=== PATIENT | female | born 1940 ===

== ENCOUNTER → 2024-01-27 | Outpatient (CLI) | payer OTHER ==
[2024-01-27 12:28] LABS: Basophils # (auto) 0 10 ^3/uL (0-0.2); Basophils % (auto) 0.8 % (0.0-2.0); Eosinophils # (auto) 0.1 10 ^3/uL (0-0.8); Eosinophils % (auto) 2.3 % (0.0-7.0); Hematocrit 41.4 % (36.0-46.0); Hemoglobin 13.5 g/dL (12.2-16.2); Lymphocytes # (auto) 1.5 10 ^3/uL (0.4-5.4); Lymphocytes % (auto) 29.3 % (10.0-50.0); Mean Corpuscular Hemoglobin 31.5 pg (28.0-32.0); Mean Corpuscular Hgb Conc. 32.7 g/dL (32.0-36.0); Mean Corpuscular Volume 96.3 fL (80.0-100.0); Monocytes # (auto) 0.4 10 ^3/uL (0-1.3); Monocytes % (auto) 8.6 % (0.0-12.0); Neutrophils # (auto) 3.1 10 ^3/uL (1.6-8.6); Red Cell Distribution Width 13.1 % (11.8-14.3); White Blood Cell 5.2 10^3/uL (4.4-10.8)
[2024-01-27 12:38] LABS: Alanine Aminotransferase 11 U/L (7-40); Alkaline Phosphatase 74 U/L (46-116); Anion Gap 7 (5-15); Carbon Dioxide 27 mmol/L (20-30); Chloride 104 mmol/L (98-107); Glucose 101 mg/dL (74-106); Sodium 138 mmol/L (136-145)
[2024-01-27 12:39] LABS: Albumin 4.8 g/dL (3.2-4.8); Aspartate Aminotransferase 20 U/L (13-40); BUN/Creatinine Ratio 17.5 (10.0-20.0); Bilirubin, Total 0.6 mg/dL (0.2-1.0); Blood Urea Nitrogen 11 mg/dL (9-23)
[2024-01-27 12:46] LABS: Urine Bacteria FEW /hpf (None Seen); Urine Blood Negative /uL (Negative); Urine Clarity Clear (Clear); Urine Color Colorless (Yellow); Urine Protein, UAD Negative (Negative); Urine Specific Gravity 1.011 (1.001-1.035); Urine Urobilinogen Normal (Negative); Urine WBC <1 /hpf (0 - 5)
[2024-01-27 13:00] LABS: Triglycerides 110 mg/dL (< 150)
[2024-01-27 13:01] LABS: CRP High Sensitivity 0.03 mg/dL (<1.0); LDL Cholesterol 125 mg/dL (< 100)
[2024-01-27 13:02] LABS: Cholesterol 183 mg/dL (< 200); HDL Cholesterol 58 mg/dL (40-59)
== END | disposition home or self-care (01) ==
LOC: LAB 12:08
PROVIDERS: ATTEND Internal Medicine
DX: Z00.01 Encounter for general adult medical examination with abnormal findings (principal); I10 Essential (primary) hypertension; E11.69 Type 2 diabetes mellitus with other specified complication
CPT/HCPCS: 36415; 80053; 80061; 81001; 83036; 84439; 84443; 85025; 86038; 86141

== ENCOUNTER → 2024-04-12 | Outpatient (CLI) | payer OTHER ==
[2024-04-12 15:56] LABS: Albumin 4.4 g/dL (3.2-4.8); Alkaline Phosphatase 70 U/L (46-116); Anion Gap 4 (5-15); Aspartate Aminotransferase 18 U/L (13-40); Bilirubin, Total 0.5 mg/dL (0.2-1.0); Blood Urea Nitrogen 21 mg/dL (9-23); Calcium 9.6 mg/dL (8.5-10.1); Carbon Dioxide 29 mmol/L (20-30); Chloride 101 mmol/L (98-107); Creatine Kinase IFCC 164 U/L (34-145); Glucose 88 mg/dL (74-106); Potassium 4.3 mmol/L (3.5-5.1); Sodium 134 mmol/L (136-145); Total Protein 7.1 g/dL (5.7-8.2)
[2024-04-12 15:57] LABS: Alanine Aminotransferase < 9 U/L (7-40)
== END | disposition home or self-care (01) ==
LOC: LAB 15:15
PROVIDERS: ATTEND Internal Medicine
DX: I10 Essential (primary) hypertension (principal); E78.5 Hyperlipidemia, unspecified; E11.69 Type 2 diabetes mellitus with other specified complication; R94.4 Abnormal results of kidney function studies
CPT/HCPCS: 36415; 80053; 82550

== ENCOUNTER → 2024-06-08 | Outpatient (CLI) | payer OTHER ==
[2024-06-08 09:27] LABS: Basophils # (auto) 0.1 10 ^3/uL (0-0.2); Eosinophils # (auto) 0.2 10 ^3/uL (0-0.8); Eosinophils % (auto) 3.5 % (0.0-7.0); Hematocrit 37.7 % (36.0-46.0); Hemoglobin 12.8 g/dL (12.2-16.2); Lymphocytes # (auto) 1.9 10 ^3/uL (0.4-5.4); Lymphocytes % (auto) 31.8 % (10.0-50.0); Mean Corpuscular Hemoglobin 32.2 pg (28.0-32.0); Mean Corpuscular Hgb Conc. 33.9 g/dL (32.0-36.0); Monocytes # (auto) 0.5 10 ^3/uL (0-1.3); Monocytes % (auto) 9.1 % (0.0-12.0); Neutrophils # (auto) 3.2 10 ^3/uL (1.6-8.6); Neutrophils % (auto) 54.6 % (37.0-80.0); Red Blood Cells 3.96 10^6/uL (4.0-5.20); Red Cell Distribution Width 13.4 % (11.8-14.3); White Blood Cell 5.9 10^3/uL (4.4-10.8)
[2024-06-08 09:38] LABS: Urine Bacteria FEW /hpf (None Seen); Urine Blood TRACE /uL (Negative); Urine Color Yellow (Yellow); Urine Mucus FEW (None Seen); Urine Protein, UAD TRACE (Negative); Urine Specific Gravity 1.028 (1.001-1.035); Urine Urobilinogen Normal (Negative); Urine WBC 18 /hpf (0 - 5)
[2024-06-08 09:42] LABS: Urine Clarity Hazy (Clear)
[2024-06-08 10:00] LABS: Alanine Aminotransferase 14 U/L (7-40); Albumin 4.6 g/dL (3.2-4.8); Alkaline Phosphatase 65 U/L (46-116); Anion Gap 4 (5-15); Aspartate Aminotransferase 14 U/L (13-40); BUN/Creatinine Ratio 29.5 (10.0-20.0); Blood Urea Nitrogen 23 mg/dL (9-23); Calcium 9.7 mg/dL (8.5-10.1); Carbon Dioxide 29 mmol/L (20-30); Chloride 106 mmol/L (98-107); Cholesterol 153 mg/dL (< 200); Glucose 91 mg/dL (74-106); HDL Cholesterol 55 mg/dL (40-59); LDL Cholesterol 80 mg/dL (< 100); Potassium 4.3 mmol/L (3.5-5.1); Sodium 139 mmol/L (136-145); Triglycerides 124 mg/dL (< 150)
[2024-06-08 10:01] LABS: Bilirubin, Total 0.6 mg/dL (0.2-1.0); Total Protein 7.4 g/dL (5.7-8.2)
[2024-06-08 11:51] LABS: Creatinine, Urine 190.47 mg/dL (30.0-125.0)
== END | disposition home or self-care (01) ==
LOC: LAB 08:54
PROVIDERS: ATTEND Internal Medicine
DX: I10 Essential (primary) hypertension (principal); D50.9 Iron deficiency anemia, unspecified; E78.5 Hyperlipidemia, unspecified; M81.0 Age-related osteoporosis without current pathological fracture; E11.69 Type 2 diabetes mellitus with other specified complication; R94.4 Abnormal results of kidney function studies
CPT/HCPCS: 36415; 80053; 80061; 81001; 82043; 82306; 82570; 83036; 84439; 84443; 85025